=== PATIENT | female | born 1955 | race Hispanic/Latino ===

== ENCOUNTER 2022-08-05 12:08 | Emergency (ER) | payer OTHER ==
[~2022-08-05] VITALS: Ht 175.3 cm; Wt 83.9 kg
[2022-08-05] MEDS ORDERED: IBUP-2070 PO (13:08)
[2022-08-05 13:21] VITALS: BP 107/60
== END 2022-08-05 13:23 | disposition home or self-care (01) ==
LOC: EDH 12:08
DX: S82.852A Displaced trimalleolar fracture of left lower leg, initial encounter for closed fracture (principal); I10 Essential (primary) hypertension; J45.909 Unspecified asthma, uncomplicated; F41.9 Anxiety disorder, unspecified; F32.A Depression, unspecified; W18.30XA Fall on same level, unspecified, initial encounter; Y93.89 Activity, other specified; Y92.89 Other specified places as the place of occurrence of the external cause; Y99.8 Other external cause status
CPT/HCPCS: 29515; 73610

== ENCOUNTER → 2024-02-12 | Outpatient (CLI) | payer OTHER ==
[~2024-02-12] MED LIST: IBUP-2070 PO
--- NOTE | 2024-02-12 14:48 | HMCIMG ---
MR SPINAL CANAL, LUMBAR WO CON REASON: PAIN COMPARISON: None TECHNIQUE: Routine lumbar imaging protocol was performed. FINDINGS: There are severe degenerative disc disease most pronounced at L1-2 and L2 but with moderate narrowing also at T12, L3 and L4. There is no significant narrowing at L5. Vertebral body alignment appears normal with the exception of a 3 mm anterior subluxation of L4 on L5. Axial images show widely patent L5-S1 disc interspace. L4-5 shows severe spinal stenosis due to ligamentum flavum and facet hypertrophic changes as well as annular bulges. AP diameter of the thecal sac is between 4 and 5 mm. Foramina appear preserved. There is moderate spinal stenosis at L3-4 on a degenerative basis. AP diameter is 6 mm. Foramina appear preserved. There is good preservation of thecal sac diameter at the remaining disc interspaces. Remaining neural foramina appear preserved as well. There are no focal osseous lesions. Stranding soft tissues appear normal. IMPRESSION: 1. Severe degenerative disc disease at multiple levels. 2. Severe spinal stenosis on a degenerative basis at L4-5, there is moderate spinal stenosis at L3-4.
== END | disposition home or self-care (01) ==
LOC: RAH 13:44
PROVIDERS: ATTEND Family Medicine
DX: M47.16 Other spondylosis with myelopathy, lumbar region (principal); R29.898 Other symptoms and signs involving the musculoskeletal system; M48.05 Spinal stenosis, thoracolumbar region; M51.06 Intervertebral disc disorders with myelopathy, lumbar region
CPT/HCPCS: 72148